=== PATIENT | male | born 1960 | race Caucasian/White ===

== ENCOUNTER 2017-10-23 10:01 | Inpatient (IN) | payer OTHER ==
[~2017-10-23] VITALS: Ht 185.4 cm; Wt 83.0 kg
--- NOTE | 2017-10-23 10:15 | ED GENERAL ADULT ---
History of Present Illness General Chief Complaint: General Adult Stated Complaint: DIZZY, ?VERTIGO, ?HASNT EATEN/DRINK IN 4 DAYS Source: patient Exam Limitations: no limitations Vital Signs & Intake/Output Vital Signs & Intake/Output Vital Signs Date Time Temp Pulse Resp B/P B/P Pulse O2 O2 Flow FiO2 Mean Ox Delivery Rate 10/24 1999 98.8 92 23 148/60 10/24 1999 100 Room Air 10/23 1600 99 Room Air 10/23 1553 98.8 100 20 120/70 10/23 1553 98.8 100 18 120/70 99 Room Air 10/23 1408 100 Room Air Room Air 10/23 1400 98.9 90 14 118/70 10/23 1331 98.0 90 18 125/72 100 Room Air 10/23 1302 98.3 90 18 109/70 100 Room Air 10/23 1240 97.6 89 18 106/57 99 Room Air 10/23 1236 97.6 90 18 106/57 100 Room Air 10/23 1133 99 Room Air 10/23 1129 97.0 117 18 102/53 98 Room Air 10/23 1010 97.8 110 18 81/48 93 Room Air Allergies Coded Allergies: No Known Allergies (10/23/17) Reconcile Medications Olmesartan/Hydrochlorothiazide (Benicar Hct 40-12.5 MG Tablet) 40 MG-12.5 MG TABLET 1 TAB PO DAILY HEART (Reported) Triage Nurses Notes Reviewed? yes Onset: Abrupt Duration: day(s): Timing: recent history HPI: 10/23/17 10:37 AM 56-year-old male presents to the emergency department complaining of lightheaded and dizziness. The patient states that he's time he stands up he feels lightheaded, like he could pass out. He says this has been going on for 3 days. He denies any chest pain or shortness of breath. He says he has a history of hypertension and is on Benicar. He denies diabetes. He says he does drink about 3 beers a day but has not had any alcohol since [employer] [place] Day. Past History Travel History Traveled to [place] past 21 day No Medical History Any Pertinent Medical History? see below for history Neurological: NONE EENT: NONE Cardiovascular: hypertension, hyperlipidemia Respiratory: NONE Gastrointestinal: NONE Hepatic: NONE Renal: NONE Musculoskeletal: NONE Psychiatric: NONE Endocrine: NONE Blood Disorders: NONE Cancer(s): NONE LENS DOTTER/Reproductive: NONE Surgical History Surgical History: non-contributory Psychosocial History What is your primary language Belarusian Tobacco Use: Never used ETOH Use: heavy use Illicit Drug Use: denies illicit drug use Family History Hx Contributory? No Review of Systems Review of Systems Constitutional: Denies: fever. EENTM: Denies: visual changes. Respiratory: Denies: short of breath. Cardiovascular: Denies: chest pain. GI: Denies: abdominal pain. Genitourinary: Reports: no symptoms. Musculoskeletal: Reports: no symptoms. Skin: Reports: no symptoms. Neurological/Psychological: Reports: no symptoms. Hematologic/Endocrine: Reports: no symptoms. Immunologic/Allergic: Reports: no symptoms. Physical Exam Physical Exam General Appearance: well developed/nourished, alert, awake, anxious, mild distress Head: atraumatic, normal appearance Eyes: Bilateral: normal appearance, PERRL, EOMI. Ears, Nose, Throat: normal pharynx, normal ENT inspection Neck: normal inspection (Anna), supple Respiratory: normal breath sounds, chest non-tender, no respiratory distress Cardiovascular: regular rate/rhythm Peripheral Pulses: 4+ radial (R), 4+ radial (L) Gastrointestinal: soft, non-tender Rectal: heme positive stool Extremities: normal inspection, normal range of motion Neurologic/Psych: no motor/sensory deficits, awake, alert, oriented x 3 Skin: intact, normal color, warm/dry Core Measures ACS in differential dx? No CVA/TIA Diagnosis: No Sepsis Present: No Sepsis Focused Exam Completed? No Progress Differential Diagnoses I considered the following diagnoses in my evaluation of the patient: [ Orthostatic hypotension, GI bleed, anemia, electrolyte derangement, acute coronary syndrome, dysrhythmia, hepatic and cephalopathy, alcohol withdrawal] Plan of Care: Orders Procedure Date/time Status Nothing by Mouth 10/24 B Active ICU LAB BUNDLE 10/24 0500 Active CBC WITHOUT DIFFERENTIAL 10/24 0500 Active Full Liquid Diet 10/23 D Complete CBC WITHOUT DIFFERENTIAL 10/23 1837 Complete BLOOD PRODUCT PICKUP 10/23 1446 Active VTE Mechanical Prophylaxis 10/23 1406 Active Vital Signs 10/23 1406 Active Teach/Educate 10/23 140 Active Skin Integrity Protocol 10/23 1406 Active Skin/Pressure Ulcer Assess (Sk 10/23 1406 Active Precautions 10/23 1406 Active Pain Treatment and Response 10/23 1406 Active Nutritional Intake, Monitor 10/23 1406 Active CIWA 10/23 1406 Active Patient Care Conference 10/23 1406 Active Activity/Ambulation 10/23 1406 Active VRE ACTIVE SURVIELLANCE 10/23 1403 Active ACTIVE SURVEILLANCE NARES 10/23 1403 Active PT Evaluate & Treat 10/23 1337 Active Saline Lock 10/23 1337 Active Pathway - chart 10/23 1337 Active House Staff 10/23 1337 Active Lab Add-on Test 10/23 1337 Active Code Status 10/23 1337 Active Patient Data 10/23 1252 Active Admit to inpatient 10/23 1247 Active BLOOD PRODUCT PICKUP 10/23 1231 Active LEUKOCYTE POOR (PACKED CELLS) 10/23 1154 Active Add-on Test (ER Only) 10/23 1140 Active THYROID STIMULATING HORMONE 10/23 1038 Complete PHOSPHORUS 10/23 1038 Complete MAGNESIUM 10/23 1038 Complete FREE T4 10/23 1038 Complete FOLIC ACID 10/23 1038 Complete VITAMIN B12 10/23 1038 Complete Saline Lock 10/23 1037 Active TROPONIN LEVEL 10/23 1037 Complete AMMONIA 10/23 1037 Complete COMPREHENSIVE METABOLIC PANEL 10/23 1037 Complete CBC WITHOUT DIFFERENTIAL 10/23 1037 Complete EKG 10/23 1037 Active TYPE & SCREEN (NOT X-MATCH) 10/23 1037 Complete PARTIAL THROMBOPLASTIN TIME 10/23 1035 Complete Intake & Output 10/23 1028 Active Lab Add-on Test 10/23 UNK Active VTE Mechanical Prophylaxis 10/23 UNK Active Vital Signs 10/23 UNK Active Intake & Output 10/23 UNK Complete Hemoccult 10/23 UNK Active CIWA 10/23 UNK Active Current Medications Sig/Yamilet Start time Last Medication Dose Stop Time Status Admin Pantoprazole Sodium 40 MG BID 10/23 1415 AC 10/23 (Protonix) 2138 Acetaminophen 1,000 MG Q6P PRN 10/23 1345 AC (Ofirmev) Morphine Sulfate 2 MG Q4P PRN 10/23 1345 AC (MORPHINE SULFATE) Dextrose/Sodium 1,000 ML .Q8H 10/23 1330 AC 10/23 Chloride 1802 (D5-Normal Saline) Laboratory Tests 10/23/17 1845: CBC w Diff NO MAN DIFF REQ, RBC 2.43 L, MCV 89.0, MCH 29.5, MCHC 33.1, RDW 18.9 H, MPV 7.0 L, Gran % 67.1, Lymphocytes % 19.2 L, Monocytes % 12.7 H, Eosinophils % 0.5, Basophils % 0.5, Absolute Granulocytes 3.8, Absolute Lymphocytes 1.1 L, Absolute Monocytes 0.7 H, Absolute Eosinophils 0, Absolute Basophils 0 10/23/17 1038: Anion Gap 16, Estimated GFR 48 L, BUN/Creatinine Ratio 20.7, Glucose 130 H, Calcium 9.0, Phosphorus 4.2, Magnesium 1.9, Total Bilirubin 0.7, AST 54, ALT 40, Alkaline Phosphatase 58, Ammonia < 9 L, Troponin I < 0.01, Total Protein 6.4, Albumin 3.7, Globulin 2.7, Albumin/Globulin Ratio 1.4, Vitamin B12 902, Folate 11.1, TSH 1.820, Free T4 1.14, CBC w Diff NO MAN DIFF REQ, RBC 1.81 L, MCV 88.5 , MCH 29.1, MCHC 32.8 L, RDW 23.7 H, MPV 7.3 L, Gran % 75.0, Lymphocytes % 15.4 L, Monocytes % 8.9, Eosinophils % 0.4, Basophils % 0.3, Absolute Granulocytes 4.9, Absolute Lymphocytes 1.0 L, Absolute Monocytes 0.6, Absolute Eosinophils 0, Absolute Basophils 0 10/23/17 1035: APTT 22 L Microbiology 10/23 1403 GI: Surveillance Culture - COLB 10/23 1400 UPPER RESP: Surveillance Culture - RECD Initial ED EKG: NSR, no ST T wave changes Departure Departure Disposition: STILL A PATIENT Condition: Stable Clinical Impression Primary Impression: GI bleed Secondary Impressions: Acute blood loss anemia, Hypotension, Severe anemia Referrals: Ilia CUEVAS,Lionel Castro (PCP/Family) Departure Forms: Customer Survey General Discharge Information Admission Note Spoke With: Brendan Wilder MD Documentation of Exam: Documentation of any treatments & extenuating circumstances including Concerns Regarding Discharge (functional status, medication knowledge or non-compliance, living conditions, etc.) that warrant an admission rather than observation: [ Endoscopy and colonoscopy, GI consult, blood transfusion] 10/23/17 12:50 PM The patient was treated with blood transfusions. He was admitted to the ICU for further care. Critical Care Note Critical Care Note Critical Care Time: non-applicable
[2017-10-23 10:51] LABS: ABSOLUTE BASOPHIL COUNT 0 /CUMM (0.0-0.2); ABSOLUTE EOSINOPHIL COUNT 0 /CUMM (0.0-0.7); ABSOLUTE MONOCYTE COUNT 0.6 /CUMM (0.10-0.60)
[2017-10-23 10:54] LABS: ABSOLUTE GRANULOCYTE CT 4.9 /CUMM (1.4-6.5); BASOPHIL % 0.3 % (0.0-2.0); EOSINOPHIL % 0.4 % (0-5); MEAN CORPUSCULAR HGB 29.1 PG (27.0-31.0); MEAN CORPUSCULAR HGB CONC 32.8 G/DL (33.0-37.0); MEAN CORPUSCULAR VOLUME 88.5 FL (80.0-94.0); MEAN PLATELET VOLUME 7.3 FL (7.4-10.4); PLATELET COUNT 276 /CUMM (130-400); RBC DISTRIBUTION WIDTH 23.7 % (11.5-14.5); RED BLOOD CELL CT 1.81 /CUMM (4.70-6.10); WHITE BLOOD CELL COUNT 6.6 /CUMM (4.8-10.8)
--- NOTE | 2017-10-23 11:01 | CT SCAN REPORT ---
EXAMINATION: CT HEAD without contrast CLINICAL INFORMATION: AMS COMPARISON: No prior CT scan available for comparison. TECHNIQUE: Noncontrasted study of 2.5 mm thin section axial images acquired. DLP: 561 mGy-cm FINDINGS: CEREBRAL HEMISPHERES: There is no evidence of intra-axial or extra-axial mass, hemorrhage or acute infarct. BRAIN PARENCHYMA: Normal cordova-white matter differentiation. SUBDURAL SPACE: No bleed. BASAL GANGLIA AND PINEAL GLAND: Unremarkable VENTRICLES: Symmetric and normal in size. CEREBELLUM AND BRAINSTEM: No space-occupying mass, hemorrhage or acute infarct. CEREBELLOPONTINE ANGLES: No lesion found. ORBITS: No intraorbital mass. VESSELS: Unremarkable SKULL BASE: Unremarkable INCLUDED SINUSES AT SKULL BASE: Clear SKULL AND SKIN: No fracture or bone lesion found. IMPRESSION: No CT evidence of intracranial space-occupying mass, bleed or infarct.
[2017-10-23] MEDS ORDERED: BENICAR HCT 401 EACH PO (11:14)
--- NOTE | 2017-10-23 13:00 | Cons- Gastroenterology ---
General Information and HPI Consulting Request Date of Consult: 10/23/17 Requested By: Matt Yanes MD Reason for Consult: Anemia, guaiac positive stool; history of etoh abuse. Hematemesis, complaints of melena. Source of Information: patient Exam Limitations: no limitations History of Present Illness: Mr. Paz is a 56 year old male with a history of HTN and heavy etoh abuse who presented to this morning with complaints of dizziness and syncopal episodes. He reports that he has been drinking heavily and he also notes that on he had an episode of vomiting coffee groungs/biliary material that was followed by a few days of black tarry stool. He denies any associated abdominal pain with eating, heartburn or dysphagia and he did not vomit up clots of blood when he did vomit. He has not had any black stool in a few days. He denies any brbpr. He has been feeling weak over the past few days and he passed out before coming to the ER this morning. In the ER he was hyotensive, was found to have a hgb of 5.3 and to have dark guaiac positive stool, but no brbpr or definitive melena was seen on rectal exam. In the ER he has gotten IVF and has been getting his first unit of PRBCs with some improvement in his lightheadedness. He has not had any vomiting, melena, or hemodynamic instability since arrival to the ER. Allergies/Medications Allergies: Coded Allergies: No Known Allergies (10/23/17) Home Med List: Ferrous Sulfate 325 MG (65 MG IRON) TABLET. 325 MG PO DAILY Supplement . Folic Acid 1 MG TABLET 1 MG PO DAILY VITAMIN DEFICIENT Multivitamin (One Daily Multivitamin) 1 EACH TABLET 1 TAB PO DAILY VITAMIN DEFICIENCY Olmesartan/Hydrochlorothiazide (Benicar Hct 40-12.5 MG Tablet) 40 MG-12.5 MG TABLET 1 TAB PO DAILY HEART (Reported) DID NOT TAKE IN THE HOSPITAL Omeprazole 20 MG CAPSULE. 40 MG PO DAILY AC Stomach Thiamine HCl (Vitamin B-1) 100 MG TABLET 100 MG PO DAILY VITAMIN DEFICIENT Current Medications: Current Medications Sig/Yamilet Start time Last Medication Dose Route Stop Time Status Admin Sodium Chloride 1,000 ML BOLUS ONE 10/23 1200 DC 10/23 IV 10/23 [id number] Past History Travel History Traveled to [place] past 21 day No Medical History Neurological: NONE EENT: NONE Cardiovascular: hypertension, hyperlipidemia Respiratory: NONE Gastrointestinal: NONE Hepatic: NONE Renal: NONE Musculoskeletal: NONE Psychiatric: NONE Endocrine: NONE Blood Disorders: NONE Cancer(s): NONE IV THERAPY NURSE/Reproductive: NONE Surgical History Surgical History: non-contributory Psychosocial History ETOH Use: heavy use Illicit Drug Use: denies illicit drug use Review of Systems Review of Systems Constitutional: Reports: malaise, weakness. Denies: diaphoresis, fever, unexplained weight loss. EENTM: Denies: no symptoms. Cardiovascular: Reports: palpitations, syncope. Denies: chest pain, edema, orthopena, peripheral edema. Respiratory: Reports: short of breath. Denies: sputum production, stridor, wheezing. GI: Reports: see HPI. Genitourinary: Denies: no symptoms. Musculoskeletal: Denies: no symptoms. Skin: Denies: no symptoms. Neurological/Psychological: Denies: no symptoms. Hematologic/Endocrine: Denies: no symptoms. Immunologic/Allergic: Denies: no symptoms. All Other Systems: Reviewed and Negative Exam & Diagnostic Data Vital Signs and I&O Vital Signs Date Time Temp Pulse Resp B/P B/P Pulse O2 O2 Flow FiO2 Mean Ox Delivery Rate 10/23 1236 97.6 90 18 106/57 100 Room Air 10/23 1133 99 Room Air 10/23 1129 97.0 117 18 102/53 98 Room Air 10/23 1010 97.8 110 18 81/48 93 Room Air Intake & Output 10/23 1600 10/23 0400 10/22 1600 10/22 0400 10/21 1600 10/21 0400 Intake Total 1000 Output Total Balance 1000 Intake, IV 1000 Patient 183 lb Weight Physical Exam General Appearance: well developed/nourished, no apparent distress, alert, awake , comfortable Head: atraumatic, normal appearance Eyes: Bilateral: normal appearance. Ears, Nose, Throat: normal pharynx, normal ENT inspection, hearing grossly normal Neck: normal inspection, supple, full range of motion Respiratory: normal breath sounds, chest non-tender, no respiratory distress, quiet respiration Cardiovascular: regular rate/rhythm Gastrointestinal: normal bowel sounds, soft, non-tender, no organomegaly Rectal: dark guaiac positive stool per ED Back: normal inspection, normal range of motion Extremities: normal inspection, normal capillary refill, normal range of motion Neurologic/Psych: no motor/sensory deficits, awake, alert, oriented x 3 Skin: intact, normal color, warm/dry Results Pertinent Lab Results: Laboratory Tests 10/23 1038 Chemistry Sodium (137 - 145 mmol/L) 139 Potassium (3.5 - 5.1 mmol/L) 3.7 Chloride (98 - 107 mmol/L) 101 Carbon Dioxide (22 - 30 mmol/L) 22 Anion Gap (5 - 16) 16 BUN (9 - 20 mg/dL) 31 H Creatinine (0.7 - 1.2 mg/dL) 1.5 H Estimated GFR (>60 ml/min) 48 L BUN/Creatinine Ratio (7 - 25 %) 20.7 Glucose (65 - 99 mg/dL) 130 H Calcium (8.4 - 10.2 mg/dL) 9.0 Total Bilirubin (0.2 - 1.3 mg/dL) 0.7 AST (17 - 59 U/L) 54 ALT (21 - 72 U/L) 40 Alkaline Phosphatase (< 127 U/L) 58 Ammonia (9 - 30 umol/L) < 9 L Troponin I (<0.11 ng/ml) < 0.01 Total Protein (6.3 - 8.2 g/dL) 6.4 Albumin (3.5 - 5.0 g/dL) 3.7 Globulin (1.9 - 4.2 gm/dL) 2.7 Albumin/Globulin Ratio (1.1 - 2.2 %) 1.4 Hematology CBC w Diff NO MAN DIFF REQ WBC (4.8 - 10.8 /CUMM) 6.6 RBC (4.70 - 6.10 /CUMM) 1.81 L Hgb (14.0 - 18.0 G/DL) 5.3 *L Hct (42 - 52 %) 16.0 *L MCV (80.0 - 94.0 FL) 88.5 MCH (27.0 - 31.0 PG) 29.1 MCHC (33.0 - 37.0 G/DL) 32.8 L RDW (11.5 - 14.5 %) 23.7 H Plt Count (130 - 400 /CUMM) 276 MPV (7.4 - 10.4 FL) 7.3 L Gran % (42.2 - 75.2 %) 75.0 Lymphocytes % (20.5 - 51.1 %) 15.4 L Monocytes % (1.7 - 9.3 %) 8.9 Eosinophils % (0 - 5 %) 0.4 Basophils % (0.0 - 2.0 %) 0.3 Absolute Granulocytes (1.4 - 6.5 /CUMM) 4.9 Absolute Lymphocytes (1.2 - 3.4 /CUMM) 1.0 L Absolute Monocytes (0.10 - 0.60 /CUMM) 0.6 Absolute Eosinophils (0.0 - 0.7 /CUMM) 0 Absolute Basophils (0.0 - 0.2 /CUMM) 0 Assessment/Plan Assessment/Recommendations: Assessment: Mr. Paz is a 56 year old male with a history of heavy etoh use who presents to today with fatigue and syncopal episodes during which time he has been found to be profoundly anemic. As his anemia is normocytic and he reports having melena and hematemesis I suspect acute blood loss over the past week rather then occult bleeding from a tumor. While he does drink heavily he is currently without evidence of end stage liver disease on labs or on PE so while a variceal bleed is always a concern this is unlikely. His platelet count of > 150 k argues against clinically significant portal hypertension and he his history is not consistent with a variceal bleed (ie. no vomiting of brb). Considering the episode of vomiting it is possible he may have had a andrés monroy tear which could of led to some blood loss. Other possibilities are bleeding from PUD, AVMS or a dieulafoys lesion or an occult malignancy although the later possibility is less likely. His last colonoscopy was in 2008 and only showed diminuitive hyperplastic polyps and diverticulosis. While this may need to be repeated if his EGD is negative for an obvious source of anemia it can be done as an outpatient. Recommendations: 1. Admit to ICU for observation. 2. Maintain 2 large bore IVs at all times. 3. IV protonix 40 mg bid for now (I don't feel octreotide is necessary or indicated) 4. Avoid nsaids 5. Monitor for signs of etoh withdrawal and treat with benzodiazepenes as needed. 6. Notify GI for signs of overt GI bleeding with hemodynamic instability. 7. Regular diet for now and would keep NPO after midnight for a diagnostic/ therapuect EGD in the am, but will do sooner if hemodynamically significant bleeding ensues in the interim time period. 8. As of now will tentatively plan to repeat a colonoscopy as an outpatient if the EGD is negative, but if the EGD does reveal a source of his anemia the repeat colonoscopy can wait til 2019. I will continue to follow this patient and make further recommendations based on his clinical course and the results of tomorrows EGD. Problem List: 1. Near syncope Copies To: Ilia CUEVAS,Lionel Castro Consult Acknowledgment - Thank you for your consult request.
--- NOTE | 2017-10-23 13:32 | Admission Certification ---
Admission Certification Certification Statement - As attending physician, I certify that at the time of - admission, based on clinical presentation, severity of - symptoms, need for further diagnostic testing and - therapeutic interventions, and risk of adverse outcomes - without in-hospital treatment, in my clinical assessment, - this patient requires an acute hospital stay for a minimum - of two nights or longer. I have also considered psychsocial - factors such as support system, advanced age, financial - issues, cognitive issues, and failed out-patient treatments, - past re-admission history, safety of patient, and lack of - compliance as applicable. Specific rationale supporting this admission is: acute blood loss anemia, secondary to gi bleed etoh dependence
--- NOTE | 2017-10-23 13:37 | History & Physical ---
Kali Butts 10/23/17 1337: General Information and HPI MD Statement: I have seen and personally examined FRED HO and documented this H&P. The patient is a 56 year old M who presented with a patient stated chief complaint of [pass out]. Source of Information: patient Exam Limitations: no limitations History of Present Illness: This is 56-year-old man with a medical history of hypertension, hyperlipidemia. Presented to the emergency department with a chief complain of feeling lightheaded and passing out. He stated after the day of he vomited due to acid reflux he stated that he induce the vomiting reflux by himself. After that he went to the bathroom he noted his stools become dark in color which is new for him. He stated last bowel movement was 2-3 days ago, also leading that due to decreased appetite and oral intake. He deny any chest pain abdominal pain with it. He stated that he passed out 2 times, and in one of them he hit his head. Also he reports feeling fatigued, weak especially with exertion also he notices can become more pale. For the past couple days after that he he stated he always feels lightheaded or dizzy when he stands up. He stated this the first time he experienced these type of symptoms. He reported drinking 3 can of beer daily for the past years, last drink was 4 days ago, he deny any recent or remote hospitalization due to alcohol issues. Also he reports drinking work, twice a week for the past years, but in the winter usually drink red wine on a daily basis. He is a former smoker he quit 5 years ago, he started smoking at the age of 14 1/2 PPD on/off. He report taking 2 tablets of 200 mg Advil at least 3 times per week for the past years for his back pain. He denies any chest pain, shortness breath, fever, chills, abdominal pain, active nausea or vomiting, headaches, blurry vision, heart racing, lower extremity edema, hematuria, dysuria. In the ED patient had H&H 5.10/17 with positive guaiac stool, patient started to receive his first packed RBCs, also received 1 L of normal saline bolus due to TELLY that is due to dehydration. GI was informed by the ED staff. 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 MOTHER (HTN). Psychosocial History Smoking Status: Former Smoker ETOH Use: heavy use Illicit Drug Use: denies illicit drug use Living Will? yes Functional Ability ADLs Independent: dressing, eating, toileting, bathing. Ambulation: independent IADLs Independent: shopping, housework, finances, food prep, telephone, transportation , medication admin. Review of Systems Review of Systems Constitutional: Reports: see HPI. Cardiovascular: Reports: see HPI. Respiratory: Reports: see HPI. GI: Reports: see HPI. Genitourinary: Reports: see HPI. Exam & Diagnostic Data Last 24 Hrs of Vital Signs/I&O Vital Signs Date Time Temp Pulse Resp B/P B/P Pulse O2 O2 Flow FiO2 Mean Ox Delivery Rate 10/23 1331 98.0 90 18 125/72 100 Room Air 10/23 1302 98.3 90 18 109/70 100 Room Air 10/23 1240 97.6 89 18 106/57 99 Room Air 10/23 1236 97.6 90 18 106/57 100 Room Air 10/23 1133 99 Room Air 10/23 1129 97.0 117 18 102/53 98 Room Air 10/23 1010 97.8 110 18 81/48 93 Room Air Intake & Output 10/23 1600 10/23 0800 10/23 0000 Intake Total 1000 Output Total Balance 1000 Intake, IV 1000 Patient 183 lb Weight Physical Exam General Appearance Alert, Oriented X3, Cooperative, No Acute Distress Skin Temp/Moisture Exam: Warm/Dry Sepsis Skin Exam (color): Pale HEENT PERRLA, EOMI Neck Supple Cardiovascular Regular Rate, Normal S1, Normal S2 Lungs Clear to Auscultation, Normal Air Movement Abdomen Normal Bowel Sounds, Soft, No Tenderness Extremities No Cyanosis, No Edema, Normal Pulses Last 24 Hrs of Labs/Gorge: Laboratory Tests 10/23/17 1038: Anion Gap 16, Estimated GFR 48 L, BUN/Creatinine Ratio 20.7, Glucose 130 H, Calcium 9.0, Total Bilirubin 0.7, AST 54, ALT 40, Alkaline Phosphatase 58, Ammonia < 9 L, Troponin I < 0.01, Total Protein 6.4, Albumin 3.7, Globulin 2.7, Albumin/Globulin Ratio 1.4, CBC w Diff NO MAN DIFF REQ, RBC 1.81 L, MCV 88.5, MCH 29.1, MCHC 32.8 L, RDW 23.7 H, MPV 7.3 L, Gran % 75.0, Lymphocytes % 15.4 L, Monocytes % 8.9, Eosinophils % 0.4, Basophils % 0.3, Absolute Granulocytes 4.9, Absolute Lymphocytes 1.0 L, Absolute Monocytes 0.6, Absolute Eosinophils 0 , Absolute Basophils 0 10/23/17 1035: APTT Pending Diagnostic Data EKG Results Normal sinus rhythm heart rate 88 QTC 436 Other Results EXAMINATION: CT HEAD without contrast CLINICAL INFORMATION: AMS COMPARISON: No prior CT scan available for comparison. TECHNIQUE: Noncontrasted study of 2.5 mm thin section axial images acquired. DLP: 561 mGy-cm FINDINGS: CEREBRAL HEMISPHERES: There is no evidence of intra-axial or extra-axial mass, hemorrhage or acute infarct. BRAIN PARENCHYMA: Normal cordova-white matter differentiation. SUBDURAL SPACE: No bleed. BASAL GANGLIA AND PINEAL GLAND: Unremarkable VENTRICLES: Symmetric and normal in size. CEREBELLUM AND BRAINSTEM: No space-occupying mass, hemorrhage or acute infarct. CEREBELLOPONTINE ANGLES: No lesion found. ORBITS: No intraorbital mass. VESSELS: Unremarkable SKULL BASE: Unremarkable INCLUDED SINUSES AT SKULL BASE: Clear SKULL AND SKIN: No fracture or bone lesion found. IMPRESSION: No CT evidence of intracranial space-occupying mass, bleed or infarct. Assessment/Plan Assessment: This is 56-year-old man with a medical history of hypertension, hyperlipidemia. Presented to the emergency department with a chief complain of feeling lightheaded and passing out. We discussed with Dr. Hameed the marketing summer intern in the ED and he'll recommend that monitoring the patient with continuing blood transfusion and GI prophylaxis, will keep him ready for upper endoscopy tomorrow morning unless patient started to have overt bleeding he will need stat EGD Problem list: -Acute blood loss anemia due to GI bleed -Acute kidney injury secondary to dehydration -Passing out due to orthostatic secondary to volume depletion -Chronic alcohol use Plan: -Admit patient to ICU. -Vitals every shift, continuous BP monitoring -Continue packed RBC transfusion goal more than 7 -IV fluid hydration of D5 normal saline at 1 25 mL per hour -40 mg of IV Protonix twice daily -Full liquid diet noted no toast -Keep patient nothing by mouth midnight for EGD in a.m. -Gastroenterology consultation -CIWA monitoring hold off any Ativan for now -Check coag, vitamin B12, folate, TSH and free T4 -Obtain baseline chest x-ray -Repeat CBC after transfusion -Pain pathway avoid any NSAIDs -DVT prophylaxis: Alps -Full code. As Ranked By This Provider Problem List: 1. Near syncope Core Measures/Misc (04/20) Acute Coronary Syndrome ACS Diagnosis: No Congestive Heart Failure Congestive Heart Failure Diagnosis No Cerebrovascular Accident CVA/TIA Diagnosis: No VTE (View Protocol) VTE Risk Factors Age>40 No Mechanical VTE Prophylaxis d/t N/A MechProphylax Ordered No VTE Pharm Prophylaxis d/t Bleeding (Active) Sepsis (View protocol) Sepsis Present: No Brendan Wilder MD 10/23/17 1613: Attending MD Review Statement Attending Statement Attending MD Statement: examined this patient, discuss w/resident/PA/LIQUOR RUNNER, agreed w/resident/PA/LIQUOR RUNNER, discussed with family, reviewed EMR data (avail), discussed with nursing, discussed with case mgmt, reviewed images, amended to note Attending Assessment/Plan: Brendan Earl M.D. have examined this patient, reviewed available EMR data, personally reviewed images, discussed with resident/PA/LIQUOR RUNNER, discussed management plan with housestaff and nursing staff, discussed managment plan all of healthcare providers, discussed management plan with patient and/or family, agreed with resident/PA/LIQUOR RUNNER. The past history and parts of the chart have been autopopulated. Impressoin 56 year old man * acute blood loss anemia secondary to gi bleed, [facility] * etoh dependence Plan -gi consultation -full liquids -monitor cbc -possible scope in am, unless any events -monitor hemodynamics -mvi,folate,thiamine -ciwa protocol -f/ cxr, electrolytes DVT prophylaxis at all times (ALPS) TTS 40 min
[2017-10-23 14:00] VITALS: BP 118/70
[2017-10-23 14:01] LABS: PTT 22 SEC (25-37)
--- NOTE | 2017-10-23 14:49 | RADIOLOGY REPORT ---
EXAMINATION: XR PORTABLE CHEST CLINICAL INFORMATION: 56-year-old male undergoing esophagogastroduodenoscopy. Preprocedure evaluation. COMPARISON: None TECHNIQUE: Portable frontal view of the chest was obtained. FINDINGS: The lungs are well-inflated and clear. Trachea is midline in position. No evidence of interstitial disease, focal consolidation, mass, pneumothorax or pleural effusion. The cardiomediastinal silhouette and pulmonary nicola have normal size and contour. No radiographic evidence of hiatal hernia. No pneumomediastinum. The visualized bones are intact. The examined upper abdomen is unremarkable. No pneumoperitoneum. IMPRESSION: Normal chest.
[2017-10-23 15:53] VITALS: BP 120/70
[2017-10-23 19:45] LABS: ABSOLUTE BASOPHIL COUNT 0 /CUMM (0.0-0.2); ABSOLUTE EOSINOPHIL COUNT 0 /CUMM (0.0-0.7); ABSOLUTE GRANULOCYTE CT 3.8 /CUMM (1.4-6.5); ABSOLUTE LYMPH COUNT 1.1 /CUMM (1.2-3.4); ABSOLUTE MONOCYTE COUNT 0.7 /CUMM (0.10-0.60); BASOPHIL % 0.5 % (0.0-2.0); EOSINOPHIL % 0.5 % (0-5); GRANULOCYTE % 67.1 % (42.2-75.2); MEAN CORPUSCULAR HGB 29.5 PG (27.0-31.0); MEAN CORPUSCULAR HGB CONC 33.1 G/DL (33.0-37.0); PLATELET COUNT 220 /CUMM (130-400); RBC DISTRIBUTION WIDTH 18.9 % (11.5-14.5); WHITE BLOOD CELL COUNT 5.7 /CUMM (4.8-10.8)
[2017-10-23 19:51] LABS: HEMATOCRIT 21.7 % (42-52)
[2017-10-23 19:52] LABS: RED BLOOD CELL CT 2.43 /CUMM (4.70-6.10)
[2017-10-23 20:00] VITALS: BP 148/60
[2017-10-23 22:00] VITALS: BP 138/92
[2017-10-23 23:00] VITALS: BP 110/70
[2017-10-24] VITALS: BP 110/70
[2017-10-24 04:49] LABS: ABSOLUTE BASOPHIL COUNT 0 /CUMM (0.0-0.2); ABSOLUTE EOSINOPHIL COUNT 0.1 /CUMM (0.0-0.7); ABSOLUTE GRANULOCYTE CT 3.5 /CUMM (1.4-6.5); ABSOLUTE LYMPH COUNT 1.2 /CUMM (1.2-3.4); ABSOLUTE MONOCYTE COUNT 0.6 /CUMM (0.10-0.60); MEAN PLATELET VOLUME 7.1 FL (7.4-10.4); WHITE BLOOD CELL COUNT 5.4 /CUMM (4.8-10.8)
[2017-10-24 05:34] LABS: BASOPHIL % 0.5 % (0.0-2.0); EOSINOPHIL % 1.4 % (0-5); GRANULOCYTE % 65.3 % (42.2-75.2); HEMATOCRIT 21.2 % (42-52); MEAN CORPUSCULAR HGB 29.3 PG (27.0-31.0); MEAN CORPUSCULAR HGB CONC 32.9 G/DL (33.0-37.0); MEAN CORPUSCULAR VOLUME 88.9 FL (80.0-94.0); PLATELET COUNT 199 /CUMM (130-400); RBC DISTRIBUTION WIDTH 18.6 % (11.5-14.5); RED BLOOD CELL CT 2.39 /CUMM (4.70-6.10)
[2017-10-24 06:00] VITALS: BP 110/70
--- NOTE | 2017-10-24 07:31 | PN- Resident CRCU ---
Lynne CUEVAS,Juan F 10/24/17 0730: Subjective HPI/CRCU Issues: Overnight issues: Patient is status post 2 blood transfusions Patient denies any dizziness, lightheadedness, shortness breath, chest pain, abdominal pain, nausea/vomiting, hematemesis. Patient states that he has not had a bowel movement this morning. Patient reports he is feeling much better after receiving the transfusions. Patient denies any fever/chills, dysuria/ hematuria. Patient reports that he feels slightly anxious about the procedure. Vitals: MAXIMUM TEMPERATURE 99 0.9, heart rate 72 102, sinus rhythm to sinus tach, respiration rate 16-21, blood pressure ranging between 92-132/60-70 Total intake: 2206, output 1175 Labs: WBC 5.4, H&H 7.0 and 21.2, platelets 199 Sodium 137, potassium 3.7, chloride 104, bicarbonate 25, BUN 20, creatinine 1.1, calcium 7.9, phosphorus 3.9, magnesium 1.8, iron 15, TIBC 296, ferritin 14.6 Objective Vital Signs & I&O Last 8 Hrs of Vitals and I&O: Vital Signs Date Time Temp Pulse Resp B/P B/P Pulse O2 O2 Flow FiO2 Mean Ox Delivery Rate 10/24 1000 98.0 76 18 123/88 10/24 0800 97.7 65 16 120/70 10/24 0800 97 Room Air 10/24 0800 97.7 65 16 120/70 97 Room Air 10/24 0600 70 17 110/70 10/24 0400 98 Room Air 10/24 0000 98.7 86 20 110/70 10/24 0000 98 Room Air 10/23 2300 98.7 86 20 110/70 98 Room Air 10/23 2200 74 16 138/92 10/24 1999 98.8 92 23 148/60 10/24 1999 100 Room Air 10/23 1600 99 Room Air 10/23 1553 98.8 100 20 120/70 10/23 1553 98.8 100 18 120/70 99 Room Air Intake & Output 10/24 1600 10/24 0800 10/24 0000 Intake Total 961 865 Output Total 200 700 Balance 761 165 Intake, IV 961 625 Intake, Oral 0 240 Number 0 0 Bowel Movements Output, Urine 200 700 Exam General Appearance: well developed/nourished, no apparent distress, alert, awake , anxious Respiratory: normal breath sounds, chest non-tender, no respiratory distress, quiet respiration, lungs clear Cardiovascular: regular rate/rhythm Gastrointestinal: normal bowel sounds, soft, non-tender Extremities: normal inspection, no edema Cranial Nerves: normal hearing, normal speech, PERRL Current Medications: Current Medications Sig/Yamilet Start time Last Medication Dose Route Stop Time Status Admin Acetaminophen 1,000 MG Q6P PRN 10/23 1345 AC IV Chlorhexidine 1 GM .STK-MED ONE 10/24 1204 DC Gluconate TOP 10/24 1205 Dextrose/Sodium 1,000 ML .Q8H 10/23 1330 DC 10/24 Chloride IV 1023 Ferrous Sulfate 325 MG DAILY 10/25 1000 AC PO Folic Acid 1 MG DAILY 10/24 1000 AC 10/24 PO 1024 Magnesium Oxide 400 MG 1345 10/24 1345 DC 10/24 PO 10/24 1346 1435 Morphine Sulfate 2 MG Q4P PRN 10/23 1345 AC IV Multivitamins 1 TAB DAILY 10/24 1000 AC 10/24 PO 1024 Pantoprazole Sodium 40 MG BID 10/23 1415 AC 10/24 IV 1024 Potassium Chloride 40 MEQ 1345 10/24 1345 DC 10/24 PO 10/24 1346 1435 Thiamine HCl 100 MG DAILY 10/24 1000 AC 10/24 PO 1024 Impression/Plan Impression/Problem List Impression: Patient is a 56-year-old male with past medical history of hypertension, hyperlipidemia, alcohol use presenting this admission with chief complaint of lightheaded illness and syncope. Patient on admission was found to have profound anemia with H&H of 5.3. In the ED patient had H&H 5.3/16 with positive guaiac stool, patient was given first packed RBCs, also received 1 L of normal saline bolus due to TELLY that is due to dehydration. GI was informed by the ED staff. Patient was admitted to the ICU for close monitorin. Symptomatic anemia, ruled out upper GI bleed Patient is status post 2 PRBCs with H&H of 7.0 and 21.2 this a.m. Patient was kept nothing by mouth overnight on IV Protonix and IV fluid. Patient was seen by GI yesterday and was planned for EGD today. EGD today showed no active bleeding or upper GI source of anemia. Biopsies of the antrum small bowel were obtained during the EGD. - Patient remained stable in the ICU. Transferred to service today. - GI on board. - Repeat CBCs this afternoon after EGD - Monitor H&H and transfuse for less than 02/21 - If patient remains stable he will require outpatient follow-up with GI for an outpatient colonoscopy - Monitor orthostatic vitals - Started on iron supplement for iron defiency anemia 2/2 to GI bleed 2. Alcohol use Patient is has significant alcohol use history. CIWA has remained 0 with no when necessary Ativan requirement. - Continue CIWA protocol - Ativan when necessary - Continue thiamine, folic acid, multivitamin 3. History of hypertension Patient on presentation was hypotensive. Patient in the ICU remained hypotensive to normotensive. Patient's antihypertensive medications were held. - If patient's blood pressure remains stable, can resume his home medication of benicar 4. Acute kidney injury Acute renal failure likely prerenal azotemia in the setting of acute GI bleed and hypotension. Creatinine resolved after transfusion and IV fluid hydration. - Continue to monitor creatinine - Continue to monitor strict I's and O's - Avoid nephrotoxic agents including NSAIDs DVT prophylaxis: Alps only in the setting of acute GI bleed Diet: Heart healthy diet Code: Full code Problem List: 1. Acute blood loss anemia 2. Near syncope Pain Ratin Tomorrow's Labs & Rationales: cbc- anemia Plan DVT/Prophylaxis: Brendan Gusman MD 10/24/17 1127: Attending MD Review Statement Attending Sign Off Attending Cosign Statement: I have: examined this patient, reviewed avalbl EMR data, personally reviewd images, discussd w/resident/PA/MANAGER DEMAND, discussed mgmt plan w/trevon, discussed mgmt plan w/CM, discussed mgmt plan w/pt, agreed w/resident/PA/MANAGER DEMAND, amended to note. Other Findings: Brendan Earl M.D. have examined this patient, reviewed available EMR data, personally reviewed images, discussed with resident/PA/MANAGER DEMAND, discussed management plan with housestaff and nursing staff, discussed managment plan all of healthcare providers, discussed management plan with patient and/or family, agreed with resident/PA/MANAGER DEMAND. The past history and parts of the chart have been autopopulated. Impressoin 56 year old man * acute blood loss anemia secondary to gi bleed, [facility] * etoh dependence Plan -gi consultation -plan for endoscopy -monitor cbc -monitor hemodynamics -mvi,folate,thiamine -ciwa protocol DVT prophylaxis at all times (ALPS) TTS 35 min
[2017-10-24 08:00] VITALS: BP 120/70
[2017-10-24 10:00] VITALS: BP 123/88
--- NOTE | 2017-10-24 11:55 | Proc Note Endoscopy ---
Endoscopy Procedure Medical History: unchanged (see [facility] consult) Mental Status: alert/oriented Heart/Lung Eval Prior to Sedation: within normal limits Candidate for Sedation? Yes Procedure Date: 10/24/17 Procedure Type: EGD w/biopsy Home Energy Rater: Dante Hameed MD ASA Classification: II Indications: Anemia, reports of melena. Hematemesis. Instrument: diagnostic gastroscope Meds Received: MAC Patient's Tolerance: good Complications: none Extent Reached: second part of duodenum Procedure: After getting written informed consent the patient was placed in the left lateral decubitus position with pulse oximetry, cardiac monitoring, and supplemental oxygen given. A bite block was inserted and IV sedation was given until the desired effect was achieved. A high definition upper Olympus endoscope was then inserted into the mouth and advanced to the second portion of the duodenum with little difficulty. Retroflexed views and photodocumentation was obtained. Findings: Esophagus: The esophageal mucosa was grossly normal in appearance and there was a normal-appearing Z line at 40 cm from the incisors. Stomach: The gastric mucosa was grossly normal in appearance. There were no ulcers, erosions, or masses appreciated. Distention and peristalsis of the stomach appeared normal. Retroflexed views were normal and did not reveal a significant hiatal hernia. Random biopsies were obtained from the antrum with cold biopsy forceps and were sent to pathology for further evaluation. Duodenum: The duodenal bulb, sweep, and folds were grossly normal in appearance. Random biopsies were obtained from the second portion of the duodenum with cold biopsy forceps and were sent to pathology for further evaluation. Impression: 1. Grossly normal upper endoscopy without active bleeding or an upper GI source of anemia appreciated status post random biopsies of the antrum and small bowel. Recommendations: 1. Would transfer the patient back to the medical floor and his diet should be advanced as tolerated. 2. Follow daily CBCs and transfuse as needed to keep his hemoglobin greater than 7 or as per cardiology recommendations. 3. Would start oral iron supplementation. 4. If there are no other active issues and he remains without evidence of overt GI bleeding would recommend he be discharged home later today or in the a.m. to follow-up as an outpatient for a repeat colonoscopy for further evaluation of his anemia. CC: Ilia CUEVAS,Lionel Castro
--- NOTE | 2017-10-24 15:46 | Patient Discharge Instructions ---
Discharge Instructions General Discharge Information You were seen/treated for: Dark Stools Anemia You had these procedures: Upper GI Endoscopy Special Instructions: Please follow up with your PCP and Machine Cementer within one week of discharge. For now discontinue taking your blood pressure medication as your blood pressure is low. Consult with your PCP as when to restart it. Get a CBC in 1 week Diet Continue normal diet: Yes Activity Full Activity/No Limits: Yes Acute Coronary Syndrome Inclusion Criteria At DC or during hospital stay patient has or had the following: ACS DIAGNOSIS No Discharge Core Measures Meds if any: Prescribed or Continued at Discharge Meds if any: NOT Prescribed or Continued at Discharge Congestive Heart Failure Inclusion Criteria At DC or during hospital stay patient has or had the following: CHF DIAGNOSIS No Discharge Core Measures Meds if any: Prescribed or Continued at Discharge Meds if any: NOT Prescribed or Continued at Discharge Cerebrovascular accident Inclusion Criteria At DC or during hospital stay patient has or had the following: CVA/TIA Diagnosis No Discharge Core Measures Meds if any: Prescribed or Continued at Discharge Meds if any: NOT Prescribed or Continued at Discharge Venous thromboembolism Inclusion Criteria VTE Diagnosis No VTE Type NONE VTE Confirmed by (Test) NONE Discharge Core Measures - Per Current guidelines, there needs to be overlap - treatment for the first 5 days of Warfarin therapy. - If discharged on Warfarin prior to 5 days of - overlap therapy, the patient will need to be - assessed for post discharge needs including - *Post discharge parental anticoagulation - *Warfarin and/or parental anticoagulation education - *Follow up date to check INR post discharge At least 5 days overlap therapy as Inpatient No Meds if any: Prescribed or Continued at Discharge Note: Overlap Therapy is Warfarin and Anticoagulant Meds if any: NOT Prescribed or Continued at Discharge
[2017-10-24] MEDS ORDERED: FERROUS SULFAT325 M2 PO (15:49)
[2017-10-24 15:50] LABS: ABSOLUTE BASOPHIL COUNT 0 /CUMM (0.0-0.2); ABSOLUTE EOSINOPHIL COUNT 0.1 /CUMM (0.0-0.7); ABSOLUTE GRANULOCYTE CT 5.3 /CUMM (1.4-6.5); ABSOLUTE LYMPH COUNT 0.8 /CUMM (1.2-3.4); ABSOLUTE MONOCYTE COUNT 0.7 /CUMM (0.10-0.60); BASOPHIL % 0.2 % (0.0-2.0); EOSINOPHIL % 1.1 % (0-5); GRANULOCYTE % 77.2 % (42.2-75.2); HEMATOCRIT 23.4 % (42-52); MEAN CORPUSCULAR HGB 29.8 PG (27.0-31.0); MEAN CORPUSCULAR HGB CONC 33.5 G/DL (33.0-37.0); MEAN CORPUSCULAR VOLUME 88.9 FL (80.0-94.0); MEAN PLATELET VOLUME 6.9 FL (7.4-10.4); PLATELET COUNT 238 /CUMM (130-400); RED BLOOD CELL CT 2.63 /CUMM (4.70-6.10); WHITE BLOOD CELL COUNT 6.9 /CUMM (4.8-10.8)
[2017-10-24 16:53] VITALS: BP 120/70
[2017-10-24 22:00] VITALS: BP 120/70
[2017-10-25 02:04] VITALS: BP 120/70
[2017-10-25 06:54] VITALS: BP 126/64
--- NOTE | 2017-10-25 08:45 | PN- Housestaff ---
Logan CUEVAS,[facility] 10/25/17 0845: Subjective Follow-up For: 1. Symptomatic anemia secondary to upper GI bleed Complaints: no complaints Subjective: Patient has no complaints this morning. He had one normal bowel movement that was brown in color last night. He denies abdominal pain, nausea vomiting or diarrhea. He denies fever chills Friday, shortness of breath, cough, chest pain , palpitations or leg swelling. He has been instructed that he follow-up with gis technician Dr. Hameed outpatient for colonoscopy to complete the workup for anemia. Review of Systems Constitutional: Reports: see HPI. Denies: chills, fever, weakness. Objective Last 24 Hrs of Vital Signs/I&O Vital Signs Date Time Temp Pulse Resp B/P B/P Pulse O2 O2 Flow FiO2 Mean Ox Delivery Rate 10/25 0654 98.4 88 20 126/64 97 Room Air 10/25 0204 98.8 90 18 120/70 99 Room Air 10/24 2307 99.5 10/24 2200 100.0 90 20 120/70 18 10/24 1653 99.0 90 20 120/70 100 10/24 1000 98.0 76 18 123/88 Intake & Output 10/25 1600 10/25 0800 10/25 0000 Intake Total 100 700 Output Total Balance 100 700 Intake, Oral 100 700 Physical Exam General Appearance: Alert, Oriented X3, Cooperative, No Acute Distress Skin: No Rashes Skin Temp/Moisture Exam: Warm/Dry Sepsis Skin Exam (color): Normal for Ethnicity HEENT: Atraumatic, PERRLA, EOMI, Mucous Membr. moist/pink Neck: Supple Lymphatic: Cervical nl Cardiovascular: Regular Rate, Normal S1, Normal S2, No Murmurs Lungs: Clear to Auscultation, Normal Air Movement Abdomen: Normal Bowel Sounds, Soft, No Tenderness, No Hepatospenomegaly, No Masses Neurological: Normal Speech, Normal Tone, Sensation Intact Extremities: No Edema Current Medications: Current Medications Sig/Yamilet Start time Last Medication Dose Route Stop Time Status Admin Acetaminophen 650 MG ONCE ONE 10/24 2129 DC 10/24 PO 10/24 Acetaminophen 1,000 MG Q6P PRN 10/23 1345 AC IV Chlorhexidine 1 GM .STK-MED ONE 10/24 1204 DC Gluconate TOP 10/24 1205 Dextrose/Sodium 1,000 ML .Q8H 10/23 1330 DC 10/24 Chloride IV 1023 Ferrous Sulfate 325 MG DAILY 10/25 1000 AC PO Folic Acid 1 MG DAILY 10/24 1000 AC 10/24 PO 1024 Magnesium Oxide 400 MG 1345 10/24 1345 DC 10/24 PO 10/24 1346 1435 Morphine Sulfate 2 MG Q4P PRN 10/23 1345 AC IV Multivitamins 1 TAB DAILY 10/24 1000 AC 10/24 PO 1024 Omeprazole 40 MG DAILY AC 10/25 0700 AC 10/25 PO 0610 Pantoprazole Sodium 40 MG BID 10/23 1415 DC 10/24 IV 1024 Potassium Chloride 40 MEQ 1345 10/24 1345 DC 10/24 PO 10/24 1346 1435 Thiamine HCl 100 MG DAILY 10/24 1000 AC 10/24 PO 1024 Last 24 Hrs of Lab/Gorge Results Last 24 Hrs of Labs/Mics: Laboratory Tests 10/25/17 0737: CBC w Diff Pending, WBC Pending, RBC Pending, Hgb Pending, Hct Pending, MCV Pending, MCH Pending, MCHC Pending, RDW Pending, Plt Count Pending, MPV Pending 10/24/17 1440: CBC w Diff NO MAN DIFF REQ, RBC 2.63 L, MCV 88.9, MCH 29.8, MCHC 33.5, RDW 19.0 H, MPV 6.9 L, Gran % 77.2 H, Lymphocytes % 11.8 L, Monocytes % 9.7 H, Eosinophils % 1.1, Basophils % 0.2, Absolute Granulocytes 5.3, Absolute Lymphocytes 0.8 L, Absolute Monocytes 0.7 H, Absolute Eosinophils 0.1, Absolute Basophils 0 Assessment/Plan Assessment: Patient is a 56-year-old male with past medical history of hypertension, hyperlipidemia, alcohol use presenting this admission with chief complaint of lightheaded illness and syncope. Patient on admission was found to have profound anemia with H&H of 5.3. In the ED patient had H&H 5.3/16 with positive guaiac stool, patient was given 1 unit of packed RBCs, also received 1 L of normal saline bolus due to TELLY that was likely from dehydration. GI was informed by the ED staff. Patient was admitted to the ICU for close monitoring and has been transferred to the general medicine floor: 1. Symptomatic anemia, ruled out upper GI bleed * Patient is status post 2 PRBCs * EGD yesterday showed no active bleeding or upper GI source of anemia. Biopsies of the antrum small bowel were obtained during the EGD * We are awaiting hemoglobin and hematocrit this mornin * If hemoglobin is > 7% patient can be discharged to follow-up with gis technician Dr. Hameed as outpatient for additional workup with colonoscopy * Check orthostatic vital signs prior to discharge * Started on iron supplement for iron defiency anemia 2/2 to GI bleed 2. Alcohol use * Patient is has significant alcohol use history. CIWA has remained 0 with no when necessary Ativan requirement. * Continue CIWA protocol * Ativan when necessary * Continue thiamine, folic acid, multivitamin 3. History of hypertension * Patient on presentation was hypotensive. His blood pressure remained in the normal range since he stopped his home medication antihypertensive * Since his blood pressure has been stable off this medicine he can be discharged to follow-up with his primary care provider to see if he needs to restart Benicar in future 4. Acute kidney injuryresolved Acute renal failure likely prerenal azotemia in the setting of acute GI bleed and hypotension. Creatinine resolved after transfusion and IV fluid hydration. - Continue to monitor strict I's and O's - Avoid nephrotoxic agents including NSAIDs DVT prophylaxis: Alps only in the setting of acute GI bleed Diet: Heart healthy diet Code: Full code Problem List: 1. Near syncope 2. GI bleed 3. Severe anemia 4. Hypotension Pain Ratin Pain Location: None Pain Goal: Remain pain free Pain Plan: Tylenol as needed Tomorrow's Labs & Rationales: None needed DVT/Prophylaxis: mechanical Brendan Wilder MD 10/25/17 1250: Attending MD Review Statement Attending Statement Attending Statement: examined this patient, discuss w/resident/PA/CARDROOM MANAGER, agreed w/resident/PA/CARDROOM MANAGER, discussed with family, reviewed EMR data (avail), discussed with nursing, discussed with case mgmt, reviewed images, amended to note Attending Assessment/Plan: Brendan Earl M.D. have examined this patient, reviewed available EMR data, personally reviewed images, discussed with resident/PA/CARDROOM MANAGER, discussed management plan with housestaff and nursing staff, discussed managment plan all of healthcare providers, discussed management plan with patient and/or family, agreed with resident/PA/CARDROOM MANAGER. The past history and parts of the chart have been autopopulated. Impression/Plan 56-year-old man with an acute blood loss anemia now stabilized with a hemoglobin of 7.3. He status post EGD and blood transfusions. He is completely asymptomatic today without any dizziness chest pain or shortness of breath. He will follow with gastroenterology for an outpatient colonoscopy he was advised to make a phone call early this week. Also he should have a CBC with his primary care physician within a week. He was advised to return to the emergency room department with any signs and symptoms of anemia that was discussed with him.
[2017-10-25 08:51] LABS: ABSOLUTE BASOPHIL COUNT 0 /CUMM (0.0-0.2); ABSOLUTE EOSINOPHIL COUNT 0.1 /CUMM (0.0-0.7); ABSOLUTE GRANULOCYTE CT 4.2 /CUMM (1.4-6.5); ABSOLUTE LYMPH COUNT 0.9 /CUMM (1.2-3.4); ABSOLUTE MONOCYTE COUNT 0.9 /CUMM (0.10-0.60); GRANULOCYTE % 68.9 % (42.2-75.2); RBC DISTRIBUTION WIDTH 18.6 % (11.5-14.5)
[2017-10-25 09:41] LABS: BASOPHIL % 0.3 % (0.0-2.0); EOSINOPHIL % 1.6 % (0-5); MEAN CORPUSCULAR HGB 29.7 PG (27.0-31.0); MEAN CORPUSCULAR HGB CONC 33.3 G/DL (33.0-37.0); MEAN PLATELET VOLUME 7.1 FL (7.4-10.4); PLATELET COUNT 231 /CUMM (130-400); RED BLOOD CELL CT 2.47 /CUMM (4.70-6.10); WHITE BLOOD CELL COUNT 6.1 /CUMM (4.8-10.8)
[2017-10-25] MEDS ORDERED: OMEPRAZOLE20 M2 PO (11:01)
[2017-10-25] MEDS ORDERED: FERROUS SULFAT325 M2 PO (11:03)
[2017-10-25] MEDS ORDERED: ONE DAILY MULT1 EAC2 PO (11:03)
[2017-10-25] MEDS ORDERED: FOLIC ACID1 M1 PO (11:03)
[2017-10-25] MEDS ORDERED: VITAMIN B-1100 MG PO (11:03)
[2017-10-25 14:32] VITALS: BP 126/68
[2017-10-25 20:00] VITALS: BP 110/60
[2017-10-25 22:00] VITALS: BP 104/60
[2017-10-25 22:08] VITALS: BP 104/60
--- NOTE | 2017-10-25 22:55 | Discharge Summary ---
Visit Information Visit Dates Admission Date: 10/23/17 Discharge Date: 10/26/17 Hospital Course Course Attending Physician: Brendan Wilder MD Primary Care Physician: Ilia CUEVAS,Lionel Castro Hospital Course: Mr Paz is a 56-year-old male with past medical history of hypertension, hyperlipidemia, alcohol use presenting this admission with chief complaint of lightheadedness and syncope. In the ED patient had H&H 5.3/16 with positive guaiac stool, he received 1 unit of packed RBCs, as well as 1 L of normal saline bolus due to TELLY that was likely from dehydration. GI was consulted by the ED staff. Patient was admitted and treated for: Symptomatic Anemia: Patient on admission was found to have profound anemia with Hb of 5.3. He was transfused two units of pRBCs. He was admitted to the ICU. GI was consulted and he was scheduled for an EGD. However, EGD showed grossly normal upper endoscopy without active bleeding or an upper GI source of anemia. Biopsies of the antrum and small bowel were taken during the EGD. He was started on oral iron supplementation. Post transfusion and EGD, patient had a reasonably stable Hb around 7-8. At the time of discharge he was completely asymptomatic without any dizziness chest pain or shortness of breath. His Hb was 8.4. He was strongly advised to follow with gastroenterology for an outpatient colonoscopy. Also to have a CBC with his primary care physician within a week. He was advised to return to the emergency room department with any signs and symptoms of anemia that was discussed with him. Acute kidney injury: On admission his Cr was found to be elevated to 1.. Acute renal failure likely prerenal azotemia in the setting of hypotension. Creatinine resolved after transfusion and IV fluid hydration. History of Hypertension: Patient on presentation was hypotensive. His blood pressure remained in the normal range since his antihypertensive was stopped in the hospital. Since his blood pressure has been stable off this medicine he can be discharged off it. He should follow-up with his primary care provider to see if he needs to restart it in future Allergies: Coded Allergies: No Known Allergies (10/23/17) Significant Procedures: SERVICE DATE: 10/23/17-1037 EXAM TYPE: CAT - CT HEAD WO IV CONTRAST FINDINGS: CEREBRAL HEMISPHERES: There is no evidence of intra-axial or extra-axial mass, hemorrhage or acute infarct. BRAIN PARENCHYMA: Normal cordova-white matter differentiation. SUBDURAL SPACE: No bleed. BASAL GANGLIA AND PINEAL GLAND: Unremarkable VENTRICLES: Symmetric and normal in size. CEREBELLUM AND BRAINSTEM: No space-occupying mass, hemorrhage or acute infarct. CEREBELLOPONTINE ANGLES: No lesion found. ORBITS: No intraorbital mass. VESSELS: Unremarkable SKULL BASE: Unremarkable INCLUDED SINUSES AT SKULL BASE: Clear SKULL AND SKIN: No fracture or bone lesion found. IMPRESSION: No CT evidence of intracranial space-occupying mass, bleed or infarct. SERVICE DATE: 10/23/17- EXAM TYPE: RAD - XRY-PORTABLE CHEST XRAY FINDINGS: The lungs are well-inflated and clear. Trachea is midline in position. No evidence of interstitial disease, focal consolidation, mass, pneumothorax or pleural effusion. The cardiomediastinal silhouette and pulmonary nicola have normal size and contour. No radiographic evidence of hiatal hernia. No pneumomediastinum. The visualized bones are intact. The examined upper abdomen is unremarkable. No pneumoperitoneum. IMPRESSION: Normal chest. Disposition Summary Disposition Principal Diagnosis: Symptomatic Anemia TELLY Additional Diagnosis: hypertension hyperlipidemia, Discharge Disposition: home or self care Discharge Instructions General Discharge Information Code Status: Full Code Patient's Diet: Heart Healthy Patient's Activity: As tolerated Follow-Up Instructions/Appts: Please follow up with your PCP within one week of discharge. Also have a repeat CBC with your PCP. Follow up with your counter helper within one week of discharge. For now discontinue taking your blood pressure medication as your blood pressure is low. Consult with your PCP as when to restart it. Medications at Discharge Discharge Medications: Continue taking these medications: Olmesartan/Hydrochlorothiazide (Benicar Hct 40-12.5 MG Tablet) 40 MG-12.5 MG TABLET 1 Tablet ORAL DAILY Qty = 30 Instructions: DID NOT TAKE IN THE HOSPITAL Start taking the following new medications: Ferrous Sulfate (Ferrous Sulfate) 325 MG (65 MG IRON) TABLET. 325 Milligram ORAL DAILY Qty = 30 No Refills Instructions: . Comments: Last Taken:10/26/17 Time:1000 AM Omeprazole (Omeprazole) 20 MG CAPSULE. 40 Milligram ORAL DAILY BEFORE BREAKFAST Qty = 30 No Refills Comments: Last Taken:10/26/17 Time:0600 AM Folic Acid (Folic Acid) 1 MG TABLET 1 Milligram ORAL DAILY Qty = 30 No Refills Comments: Last Taken:10/26/17 Time:1000 AM Thiamine HCl (Vitamin B-1) 100 MG TABLET 100 Milligram ORAL DAILY Qty = 30 No Refills Comments: Last Taken:10/26/17 Time:1000 AM Multivitamin (One Daily Multivitamin) 1 EACH TABLET 1 Tablet ORAL DAILY Qty = 30 No Refills Comments: Last Taken:10/26/17 Time:1000 AM Copies To: Ilia CUEVAS,Lionel Castro
[2017-10-26 02:00] VITALS: BP 114/60
[2017-10-26 06:00] VITALS: BP 118/68
--- NOTE | 2017-10-26 08:29 | PN- Housestaff ---
Luisana Nuñez 10/26/17 0829: Subjective Follow-up For: Symptomatic anemia secondary to upper GI bleed Alcohol use Acute kidney injuryresolved Subjective: No complaints or acute events overnight Review of Systems Constitutional: Reports: see HPI. Objective Last 24 Hrs of Vital Signs/I&O Vital Signs Date Time Temp Pulse Resp B/P B/P Pulse O2 O2 Flow FiO2 Mean Ox Delivery Rate 10/26 0600 99.2 90 20 118/68 10/26 0600 99.1 90 16 118/68 97 Room Air 10/26 0200 99.5 90 20 114/60 10/25 2208 99.2 91 20 104/60 98 Room Air 10/25 2200 99.2 91 20 104/60 10/25 2000 99.7 94 20 110/60 10/25 1432 99.9 91 20 126/68 99 Intake & Output 10/26 1600 10/26 0800 10/26 0000 Intake Total 130 1100 Output Total 200 Balance 130 900 Intake, IV 10 500 Intake, Oral 120 600 Output, Urine 200 Physical Exam General Appearance: Alert, Oriented X3, Cooperative, No Acute Distress Cardiovascular: Regular Rate, Normal S1, Normal S2 Lungs: Clear to Auscultation, Normal Air Movement Abdomen: Normal Bowel Sounds, Soft, No Tenderness Extremities: No Edema Current Medications: Current Medications Sig/Yamilet Start time Last Medication Dose Route Stop Time Status Admin Acetaminophen 650 MG ONCE ONE 10/25 2014 DC 10/25 PO 10/25 Acetaminophen 1,000 MG .STK-MED ONE 10/25 1950 DC IV 10/25 195 Acetaminophen 650 MG ONCE ONE 10/25 1445 CAN PO 10/25 1446 Acetaminophen 1,000 MG Q6P PRN 10/23 1345 AC IV Ferrous Sulfate 325 MG DAILY 10/25 1000 AC 10/25 PO 1033 Folic Acid 1 MG DAILY 10/24 1000 AC 10/25 PO 1033 Morphine Sulfate 2 MG Q4P PRN 10/23 1345 AC IV Multivitamins 1 TAB DAILY 10/24 1000 AC 10/25 PO 1033 Omeprazole 40 MG DAILY AC 10/25 0700 AC 10/26 PO 0631 Oxycodone/ 2 TAB ONCE ONE 10/25 1445 DC 10/25 Acetaminophen PO 10/25 1446 1536 Thiamine HCl 100 MG DAILY 10/24 1000 AC 10/25 PO 1033 Last 24 Hrs of Lab/Gorge Results Last 24 Hrs of Labs/Mics: Laboratory Tests 10/26/17 0725: Sodium Pending, Potassium Pending, Chloride Pending, Carbon Dioxide Pending, Anion Gap Pending, CBC w Diff Pending, WBC Pending, RBC Pending, Hgb Pending, Hct Pending, MCV Pending, MCH Pending, MCHC Pending, RDW Pending, Plt Count Pending, MPV Pending Assessment/Plan Assessment: Mr. Man is a 56-year-old male with past medical history of hypertension, hyperlipidemia, alcohol use presenting this admission with chief complaint of lightheaded illness and syncope Problem list: Symptomatic anemia secondary to upper GI bleed s/p 3U- resolved Alcohol use Acute kidney injuryresolved Plan: Hgb 8.5, patient will be discharged today Ativan per [facility] DVT prophylaxis: Alps only in the setting of acute GI bleed Diet: Heart healthy diet Code: Full code Problem List: 1. GI bleed 2. Alcohol dependence Pain Ratin Pain Location: NA Pain Goal: Remain pain free Pain Plan: NA Tomorrow's Labs & Rationales: Brendan Hernandes MD 10/26/17 0933: Attending MD Review Statement Attending Statement Attending MD Statement: examined this patient, discuss w/resident/PA/CIVIL PREPAREDNESS COORDINATOR, agreed w/resident/PA/CIVIL PREPAREDNESS COORDINATOR, discussed with family, reviewed EMR data (avail), discussed with nursing, discussed with case mgmt, reviewed images, amended to note Attending Assessment/Plan: Brendan Earl M.D. have examined this patient, reviewed available EMR data, personally reviewed images, discussed with resident/PA/CIVIL PREPAREDNESS COORDINATOR, discussed management plan with housestaff and nursing staff, discussed managment plan all of healthcare providers, discussed management plan with patient and/or family, agreed with resident/PA/CIVIL PREPAREDNESS COORDINATOR. The past history and parts of the chart have been autopopulated. Impression/Plan 56-year-old man with an acute blood loss anemia now stabilized with a hemoglobin of 8.5. He status post EGD and blood transfusions. He is completely asymptomatic today without any dizziness chest pain or shortness of breath. He will follow with gastroenterology for an outpatient colonoscopy he was advised to make a phone call early this week. Also he should have a CBC with his primary care physician within a week. He was advised to return to the emergency room department with any signs and symptoms of anemia that was discussed with him.
[2017-10-26 08:31] LABS: ABSOLUTE BASOPHIL COUNT 0 /CUMM (0.0-0.2); ABSOLUTE EOSINOPHIL COUNT 0 /CUMM (0.0-0.7); ABSOLUTE GRANULOCYTE CT 6.2 /CUMM (1.4-6.5); ABSOLUTE LYMPH COUNT 0.6 /CUMM (1.2-3.4); ABSOLUTE MONOCYTE COUNT 1.3 /CUMM (0.10-0.60); BASOPHIL % 0.1 % (0.0-2.0); EOSINOPHIL % 0.2 % (0-5); GRANULOCYTE % 76.5 % (42.2-75.2); HEMATOCRIT 24.9 % (42-52); MEAN CORPUSCULAR HGB 30.2 PG (27.0-31.0); MEAN CORPUSCULAR HGB CONC 34.2 G/DL (33.0-37.0); MEAN CORPUSCULAR VOLUME 88.4 FL (80.0-94.0); PLATELET COUNT 260 /CUMM (130-400); RBC DISTRIBUTION WIDTH 17.3 % (11.5-14.5); RED BLOOD CELL CT 2.82 /CUMM (4.70-6.10); WHITE BLOOD CELL COUNT 8.1 /CUMM (4.8-10.8)
== END 2017-10-26 12:00 | DRG 378 ==
LOC: ERH 10:01 → 2NA 12:47 → ERHI 12:47 → CRI 12:47 → ENRESERV 13:15 → ENTRNSPT 13:24 → EDTRNSPT 13:26 → EDTRNSPTSTS 13:26 → CRI 13:31 → CMPTRNSPT 13:49 → DELTRNSPT 10-24 14:30 → ENTRNSPT 10-24 14:43 → EDTRNSPT 10-24 14:50 → EDTRNSPTSTS 10-24 14:50 → 2NA 10-24 14:54 → CMPTRNSPT 10-24 15:13 → ENPENDDIS 10-25 11:03 → 2NA 10-25 11:57 → ENTRNSPT 10-26 11:30 → EDTRNSPTSTS 10-26 11:34 → EDTRNSPT 10-26 11:34 → CMPTRNSPT 10-26 12:00 → 2NA 10-26 12:00
PROVIDERS: Emergency Medicine; Internal Medicine Hematology & Oncology; Student in an Organized Health Care Education/Training Program
PROC: 30233N1 Transfusion of Nonautologous Red Blood Cells into Peripheral Vein, Percutaneous Approach (ICD-10-PCS; 2017-10-23)
PROC: 0DB98ZX Excision of Duodenum, Via Natural or Artificial Opening Endoscopic, Diagnostic (ICD-10-PCS; principal; 2017-10-24)
PROC: 0DB68ZX Excision of Stomach, Via Natural or Artificial Opening Endoscopic, Diagnostic (ICD-10-PCS; principal; 2017-10-24)
DX: K92.2 Gastrointestinal hemorrhage, unspecified (principal); D62 Acute posthemorrhagic anemia; N17.9 Acute kidney failure, unspecified; I95.9 Hypotension, unspecified; E86.0 Dehydration; E78.5 Hyperlipidemia, unspecified; Z87.891 Personal history of nicotine dependence; F10.20 Alcohol dependence, uncomplicated; I10 Essential (primary) hypertension
CPT/HCPCS: 2NASP; CCU; 36415; 36592; 71045; 82436; 86920; 88305; 88312; 93005; 93010; 96361; 96374; 97161-GP; J0131; J3490; J7042; P9016